=== PATIENT | female | born 2000 | race Two or more races ===

== ENCOUNTER 2024-01-09 06:10 | Inpatient (IN) | payer OTHER ==
[~2024-01-09] VITALS: Ht 160 cm; Wt 81.6 kg
[2024-01-09 07:47] LABS: HEMATOCRIT 33.3 % (36.0-45.00); MEAN CELL VOLUME 80.1 fL (80.00-100.00); MEAN CORPUSCULAR HEMOGLOBIN 26.5 pg (27.00-32.0); PLATELET COUNT 325 K/uL (150-450); RED BLOOD COUNT 4.16 M/uL (4.00-6.00); RED CELL DISTRIBUTION WIDTH 15.2 % (11.5-14.5)
[2024-01-09 07:58] LABS: URINE APPEARANCE Cloudy; URINE BILIRRUBIN Negative (NEGATIVE); URINE BLOOD Negative; URINE COLOR Yellow; URINE GLUCOSE Negative (NEGATIVE); URINE KETONE Negative (NEGATIVE); URINE LEUKOCYTE Moderate; URINE NITRATE Negative; URINE PROTEIN Negative (NEGATIVE)
[2024-01-09 08:00] LABS: URINE BACTERIA 1931.3 uL (0.0-1933); URINE EPITHELIAL CELLS 41.2 uL (0.0-38.8); URINE WBC 61.9 uL (0.0-23.2)
[2024-01-09 08:10] LABS: INR < 0.93; PARTIAL THROMBOPLASTIN TIME 24.8 SECONDS (22.0-34.0)
[2024-01-09 08:22] LABS: ALBUMIN 3.1 gm/dL (3.4-5.0); BILIRUBIN TOTAL 0.4 mg/dL (0.3-1.2); CALCIUM 9.3 mg/dL (8.5-10.1); CREATININE SERUM 0.64 mg/dL (0.55-1.02); GLOBULINA 4.2 G/DL (2.4-3.5); POTASSIUM 3.81 mEq/L (3.5-5.1); TOTAL PROTEIN 7.3 gm/dL (6.4-8.2)
[2024-01-09 08:33] LABS: URINE RBC 1.6 uL (0.0-20.8)
[2024-01-09] MEDS ORDERED: MISOPROSTOL 25 MCG/4 ML GEL.W.APPL VAG ONE (12:30)
[2024-01-09] MEDS ORDERED: PROMETHAZINE HCL 25 MG/ML AMPUL ONE (14:38)
[2024-01-09] MEDS ORDERED: MEPERIDINE HCL/PF 50 MG/ML VIAL IV ONE (15:30)
[2024-01-09] MEDS ORDERED: PROMETHAZINE HCL 25 MG/ML AMPUL IV ONE (15:30)
[2024-01-09] MEDS ORDERED: ERYTHROMYCIN BASE 1 GM TUBE OP ONE (16:53)
[2024-01-09] MEDS ORDERED: OXYTOCIN 20 UNITS/1000ML RL PIGGYBAG IV ONE (16:53)
[2024-01-09] MEDS ORDERED: CHLORHEXIDINE GLUCONATE 120 ML BOTTLE TOP ONE (16:54)
[2024-01-09] MEDS ORDERED: LIDOCAINE HCL 1% 10ML VIAL ONE (16:54)
== END 2024-01-11 18:38 | disposition home or self-care (01) | DRG 807 ==
LOC: LDR 06:10 → OB/GYN 01-10 01:02
PROVIDERS: ADMIT Obstetrics & Gynecology Obstetrics; ATTEND Obstetrics & Gynecology Obstetrics
PROC: 10E0XZZ Delivery of Products of Conception, External Approach (ICD-10-PCS; principal; 2024-01-09)
PROC: 3E033VJ Introduction of Other Hormone into Peripheral Vein, Percutaneous Approach (ICD-10-PCS; 2024-01-09)
PROC: 3E0P7VZ Introduction of Hormone into Female Reproductive, Via Natural or Artificial Opening (ICD-10-PCS; 2024-01-09)
PROC: 4A1HXCZ Monitoring of Products of Conception, Cardiac Rate, External Approach (ICD-10-PCS; 2024-01-09)
DX: O80 Encounter for full-term uncomplicated delivery (principal); Z37.0 Single live birth; Z3A.40 40 weeks gestation of pregnancy; Z20.822 Contact with and (suspected) exposure to COVID-19